=== PATIENT | female | born 1985 | race Caucasian/White ===

== ENCOUNTER 2023-10-13 00:01 | Day surgery (SDC) | payer OTHER, SELFPAY ==
[2023-09-29 10:37] VITALS: BMI 26.8
--- NOTE | 2023-09-29 11:06 | PC.NURSE ---
Report to the Outpatient Waiting Room, entrance under the green pavilion located off [facility], at time 06:00am on date 10-13-23. Planned Procedure Time: 07:30am. Time changes happen often and if your time is changed the preop area will call you the afternoon before. - You and your visitor will be asked to self-screen and do not enter if you have any COVID symptoms. - A mask is optional within the hospital at this time. Patients may have clear liquids (water, carbonated beverages, clear teas, apple juice) until 3 hours prior to surgery (4:30am) with a maximum of 20 ounces. - No food from midnight until time of surgery Take the following medications with a SIP of water the morning of surgery: bupropion DO NOT STOP ANY OF YOUR OTHER PRESCRIPTION MEDICATIONS PRIOR TO SURGERY EXCEPT THE FOLLOWING Medications to discontinue per physician: vitamins Date to take last dose 10-09-23 Please no make-up, nail bangladeshi, hairspray, perfume, deodorant, or body powder the day of surgery. No jewelry (including any body piercings) or valuables the day of surgery, leave them at home. Please take a shower or bath the night before, or the morning of, surgery with an antibacterial soap. Wear comfortable, loose fitting clothing. - Jewelry must be removed prior to entering the operating room. Rings and piercings that are not removed may be cut off. - The hospital will not accept responsibility for valuables. - Please leave all valuables, including medications, at home the day of surgery. If you are going home after surgery, a licensed full service vending driver must drive you home. - NO public transportation without another adult if you receive anesthesia. - We recommend that an adult stay with you for 24 hours following discharge. - We also recommend that you do not drive, make important decision, drink alcoholic beverages, or take any drugs that were not prescribed by your health care provider for at least 24 hours after your discharge time. Follow any additional instructions given to you from your surgeon. If you or anyone in your household have experienced Covid symptoms in the past week, please notify your surgeon or the nurse liaison at the phone number below for possible testing. Telephone instructions given to PATIENT and asked if any additional questions and then verbalized understanding. Patient advised to call surgeon office or pre surgery nurse liaison [phone] if any additional questions.
[2023-10-13] VITALS (11 sets, daily range): BP systolic 102–118; BP diastolic 55–75; PULSE 76–117; RESP 12–16; TEMP 36.3–37; O2SAT 97–100
--- NOTE | 2023-10-13 06:04 | ECG_ITS ---
Test Date: 2023-10-13 07:01:20 Measurements Intervals [place] Rate: 86 P: 7 ME: 145 QRS: 23 QRSD: 89 T: 49 QT: 357 QTc: 427 Interpretive Statements SINUS RHYTHM No previous ECG available for comparison Electronically Signed On 10-13-2023 12:09:50 CDT by Carol Ordaz M.D.
[2023-10-13] MEDS: LACTATED RINGERS 1,000 ML 30 ML IV CONT ×2 (06:30→16:27)
--- NOTE | 2023-10-13 06:34 | WPDHPUPDATE1 ---
History and Physical Update Update Date/Time: 10/13/23 06:34 History and Physical has been reviewed, including an updated exam of the patient. There are NO changes in the patient's condition. Risks, benefits, and alternatives have been discussed and questions answered. Patient agrees to proceed with procedure.
--- NOTE | 2023-10-13 06:34 | W.PM.PROC2 ---
Procedure Note - Detailed Date of Procedure 10/13/23 Pre-op Diagnosis breast ptosis, skin laxity Post-op Diagnosis Same Procedure Performed 1. Bilateral Mastopexy with Galaflex 2. Belt lipectomy with suction lipectomy 3. Bra roll excision Surgeon Edin Rivers MD Anesthesia General Findings Inverted T Superior medial pedicle REF# [id number] Tissue removed: 3,362.1 grams Lipoaspirate: 2,500 cc Diastasis width: 6 cm Description of Procedure They are here today for the above procedures. Previously and again today the risks, benefits, alternatives were discussed in extensive detail. I wanted them to be very realistic about the risks involved as well as expectations. We discussed aftercare and what to monitor for. I was very upfront about the risks of wound breakdown leading to loss of skin, open wounds, and need for additional procedures with permanent abdominal deformity. We discussed DVT/PE risks and management. Made sure answered all of their questions to their satisfaction today and consent was obtained. They were marked in the preoperative holding area with their verification. The patient was taken to the operating room. Anesthesia was provided by anesthesiology. A Hussein catheter was started. Posterior body Placed prone on the operating room table with care taken to protect from injury. Prepped and draped in a standard sterile fashion. A surgical time-out was taken. Stab incisions were made and tumescent solution was infiltrated. Once adequate time was allowed for hemostasis a 5mm basket and 3mm multi hole cannula were utilized to complete suction lipectomy based on S.A.F.E. technique in multiple planes and passes. Suction lipectomy continued to result based on pre-operative planning, intra-operative observation, and rolling pinch test which were in full agreement. A 10 blade was used to make the upper incision at the superior bra line and dissection was continued inferior elevating what we necessary for closure. This was closed with 3 point suture with 2-0 Vicryl followed 2-0 PDO strattafix, 3-0 stratafix ,running subcuticular 4-0 Monocryl, and tissue glue. A 10 blade was used to make the upper incision at the superior gluteal border and dissection was continued inferior elevating what we necessary for closure. I placed patient in slight jackknife position and excised intervening tissue. This was closed with 3 point suture with 2-0 Vicryl followed 2-0 PDO strattafix, 3-0 stratafix ,running subcuticular 4-0 Monocryl, and tissue glue. Laterally ajcinto were placed for turning. Patient was then placed supine with care taken to protect from injury. Mastopexy Eleven blade was utilized to make a stab incision and infiltrated with low volume tumescent solution. The breast was tailor tacked into place. I tailor tacked the breast into position. Placed her in a sitting position. Verified the nipple-areolar location based on preoperative planning as well as intraoperative observations and measurements in full agreement. She was placed supine. I de-epithelialized the pedicle. I then de-epithelialized the inferior breast tissue to create an autoaugmentation flap based on intercostal gas system operator. I elevated medial and lateral tissue flaps as well for planned closure. The autoaugmentation flap was sutured to the chest wall with 2-0 PDS. Galaflex was soaking on the back table. Trimmed and sutured into place with 2-0 Vicryl. I closed along the IMF with 2-0 Stratafix. Along the vertical with 2-0 PDS. I closed around the Isaiah with 3-0 strata fix. 3-0 Monocryl along the vertical. 3-0 Stratafix along the IMF. I finally closed everything with running subcuticular 4-0 Monocryl and tissue glue. Abdomen I placed the patient in a flexed position to verify the upper and lower markings would reach. I then placed supine. A thorough abdominal examination was completed. Stab incisions were made and tumescent so
--- NOTE | 2023-10-13 06:38 | P.PNAN_ITS ---
Anes - Initial Pre Proc Eval Procedure: Operation Date: 10/13/23 07:30 Proposed Procedures p Bilateral Breast Mastopexy with Galaflex, Excision Bra Roll, - Edin Rivers MD s Belt Lipectomy with Liposuction - Edin Rivers MD Date/Time: 10/13/23 06:38 Surgeon: Edin Rivers MD Pre Op Diagnosis: breast ptosis, skin laxity Patient Data Age: 38 Gender: F Height: 1.73 m Weight: 80 kg Allergies Allergy/AdvReac Type Severity Reaction Status Date / Time doxycycline Allergy Intermediate Hives Verified 09/29/23 10:41 shrimp AdvReac Unknown Unknown Verified 09/29/23 10:41 ibuprofen AdvReac Flushing Verified 09/29/23 10:41 Home Medications Medication Instructions Recorded Confirmed Type bupropion HCl 300 mg 24 hr tablet, 150 mg PO DAILY 09/29/23 09/29/23 History extended release calcium carb-vitamin D3 ER 600 mg tablet PO 09/29/23 History (1,500 mg)-500 unit tablet,ER 24 hr diazepam 10 mg tablet 10 mg DAILY 09/29/23 09/29/23 History ferrous sulfate 325 mg (65 mg 325 mg PO DAILY 09/29/23 09/29/23 History iron) tablet multivitamin [id number] 1 tablet PO 09/29/23 History fumarate 18 mg-vitamin K 25 mcg tablet pantoprazole 40 mg tablet,delayed 40 mg PO DAILY 09/29/23 09/29/23 History release spironolactone 100 mg tablet 200 mg PO DAILY 09/29/23 09/29/23 History Patient hx anesthesia problems: none Family hx anesthesia problems: none Results Review: All pre-operative results and documents have been reviewed as part of the pre- operative evaluation. PENDING SALE TO [facility] Past Medical History Medical History (Updated 10/13/23 @ 06:40 by Federico Arevalo MD) Anxiety Fusion of spine of thoracolumbar region surgery age 18 - Rain rods Kyphoscoliosis Obesity Surgical History Surgical History (Updated 10/13/23 @ 06:40 by Federico Arevalo MD) H/O wisdom tooth extraction S/P gastric sleeve procedure Social History Social History Smoking status: Never smoker Second hand tobacco smoke exposure: No Alcohol intake: never Substance use: never Substance use type: does not use Living arrangements: alone Anes - Eval Final PreProcedure Day of Procedure 10/13/23 06:38 Patient weight: overweight Heart: regular rate and rhythm Lungs: clear to auscultation Airway: Mallampati scale class II and special considerations retrognathia Neurological: alert and oriented Last oral intake: >/= 8 hours ASA classification: III Emergent: no Anesthetic plan: proceed Anesthesia type and monitoring: general ETT and standard monitoring Results Review: All pre-operative results and documents have been reviewed as part of the pre- operative evaluation. Informed Consent: The patient's anesthetic plan and its attendant risks and benefits were discussed with the patient/family/POA. Questions were solicited and answers provided to the satisfaction of the patient/family/POA.
[2023-10-13 06:59] LABS: Hematocrit 42.5 % (37.0-47.0); Hemoglobin 14.6 g/dL (12.0-15.0)
[2023-10-13 07:09] LABS: Urine Cotinine NEGATIVE
[2023-10-13] MEDS: SCOPOLAMINE 1 MG PATCH 1 PATCH TRANSDERM (07:25)
[2023-10-13] MEDS: BUPIVACAINE/EPINEPHRINE 0.5% 10 ML VIAL 60 ML INFILTRATE (07:42)
[2023-10-13] MEDS: LACTATED RINGERS IRRIG 1,000 ML, LIDOCAINE HCL 1% LOCAL INJ 50 ML, EPINEPHrine HCL INJ ... INFILTRATE ×2 (07:42→15:34)
[2023-10-13] MEDS: NACL 0.9% IRRIG POUR BOTTLE 900 ML, GENTAMICIN SULFATE INJ 160 MG, ceFAZolin 2 GM, POVI... IRRIGATION (07:42)
[2023-10-13] MEDS: ceFAZolin 2 GM/D5W 50 ML 2 GM/50 ML BAG IVPB (07:44)
[2023-10-13] MEDS: TRANEXAMIC ACID 1,000MG/ISO100 1,000 MG/100 ML BAG 200 MG IVPB (08:03)
[2023-10-13] MEDS: ceFAZolin SODIUM 1 GM VIAL IV PUSH (11:38)
[2023-10-13] MEDS: ceFAZolin SODIUM 1 GM VIAL 2 GM (15:34)
[2023-10-13] MEDS: fentaNYL CITRATE INJ (*CRX) 100 MCG/2 ML VIAL 25 MCG IV PUSH ×8 (16:36→18:29)
[2023-10-13] MEDS: ONDANSETRON INJ 4 MG/2 ML VIAL IV PUSH (16:39)
[2023-10-13] MEDS: oxyCODONE HCL (*CRX) 5 MG TAB IR PO (18:54)
== END 2023-10-13 20:34 | disposition home or self-care (01) ==
PROVIDERS: Anesthesiology; Visit Provider Surgery Plastic and Reconstructive Surgery
PROC: (CPT 19316; principal; 2023-10-13 07:30)
PROC: (CPT 19316; 2023-10-13 07:30)
DX: Z41.1 Encounter for cosmetic surgery (principal); N64.81 Ptosis of breast; L57.4 Cutis laxa senilis; F41.9 Anxiety disorder, unspecified; Z98.1 Arthrodesis status; Z98.84 Bariatric surgery status
CPT/HCPCS: 19316; 15777 ×2; 15830; 15847; 15877; 15839; 36415; 80307; 85014; 85018; 93005; A9270; J0171; J0690; J1100; J1170; J1200; J1580; J1940; J2250; J2405; J2704; J3010; J7120